=== PATIENT | female | born 1995 | race Caucasian/White ===

== ENCOUNTER 2021-07-09 17:55 | Emergency (ER) | payer OTHER ==
[~2021-07-09] VITALS: Ht 180.3 cm; Wt 79.4 kg
[2021-07-09 19:12] LABS: URINE BILIRUBIN NEGATIVE (Negative); URINE BLOOD NEGATIVE (Negative); URINE CLARITY CLEAR; URINE COLOR YELLOW; URINE GLUCOSE-RANDOM* NEGATIVE (Negative); URINE KETONES NEGATIVE (Negative); URINE LEUKOCYTES-REFLEX TRACE (Negative); URINE NITRITE-REFLEX NEGATIVE (Negative); URINE PROTEIN (DIPSTICK) NEGATIVE (Negative); URINE SPECIFIC GRAVITY 1.015 (1.005-1.035); URINE UROBILINOGEN 0.2 E.U./dl (0.2-1.0)
[2021-07-09 19:23] LABS: AMP/METHAMP Negative (Negative); BARBITURATES Negative (Negative); BENZODIAZEPINES POSITIVE (Negative); COCAINE POSITIVE (Negative); METHADONE Negative (Negative); OPIATES Negative (Negative); PCP Negative (Negative)
[2021-07-09 19:50] LABS: ABSOLUTE NEUTROPHILS 4.3 thou/uL (1.4-8.2); BASOPHILS 0.9 % (0.0-2.0); EOSINOPHILS 2.3 % (0.0-3.0); HEMATOCRIT 38.9 % (37.0-47.0); HEMOGLOBIN 12.9 gm/dL (12.0-15.0); LYMPHOCYTES 23.8 % (24.0-44.0); MCH 31.5 pg (26.0-34.0); MCHC 33.3 g/dL (28.0-37.0); MCV 94.7 fL (80.0-100.0); MONOCYTES 11.1 % (1.0-8.0); PLATELET COUNT 239 thou/uL (150-400); POLYS 61.9 % (36.0-66.0); RBC 4.11 mil/uL (4.20-5.00); RDW 13.8 % (10.5-14.5); WBC 6.9 thou/uL (4.0-11.0)
[2021-07-09 20:02] LABS: CALCIUM 8.8 mg/dL (8.5-10.1); CREATININE 0.8 mg/dL (0.6-1.0); POTASSIUM 3.9 mmol/L (3.5-5.1)
[2021-07-09] MEDS ORDERED: FLAGYL500 M1 PO (20:12)
[2021-07-09 20:30] VITALS: BP 107/51
== END 2021-07-09 20:14 | disposition home or self-care (01) ==
LOC: ER 17:55
PROVIDERS: Physician Assistant
DX: M54.50 Low back pain, unspecified (principal); M25.572 Pain in left ankle and joints of left foot; N76.0 Acute vaginitis; B96.89 Other specified bacterial agents as the cause of diseases classified elsewhere; F12.90 Cannabis use, unspecified, uncomplicated; Z90.49 Acquired absence of other specified parts of digestive tract

== ENCOUNTER 2021-07-25 13:35 | Emergency (ER) | payer OTHER ==
[~2021-07-25] VITALS: Ht 177.8 cm; Wt 83.9 kg
[~2021-07-25 13:35] MED LIST: FLAGYL500 M1 PO
[2021-07-25] MEDS ORDERED: NOHOMEMEDICATIONS (13:43)
[2021-07-25] MEDS ORDERED: IBU600 MG PO (14:25)
[2021-07-25 14:43] VITALS: BP 118/62
== END 2021-07-25 14:45 | disposition home or self-care (01) ==
LOC: ER 13:35
DX: S83.91XA Sprain of unspecified site of right knee, initial encounter (principal); F12.90 Cannabis use, unspecified, uncomplicated; F17.210 Nicotine dependence, cigarettes, uncomplicated; Z90.49 Acquired absence of other specified parts of digestive tract; X50.1XXA Overexertion from prolonged static or awkward postures, initial encounter; Y93.41 Activity, dancing; Y92.89 Other specified places as the place of occurrence of the external cause; Y99.8 Other external cause status